=== PATIENT | male | born 1945 | race Caucasian/White ===

== ENCOUNTER 2019-11-12 12:08 | Emergency (ER) | payer MEDICARE, OTHER, SELFPAY ==
[2019-11-12 12:24] VITALS: BP 125/64; PULSE 67; RESP 18; TEMP 37.1; O2SAT 96
--- NOTE | 2019-11-12 12:28 | ED.MALEGU ---
HPI - Male Genitourinary General Chief complaint: Urogenital-Male Stated complaint: blood in urine Time Seen by Provider: 11/12/19 12:28 Source: patient and RN notes reviewed History of Present Illness HPI Narrative: Patient is a 74-year-old male who presents to the urgent care with complaints of bloody urine. Patient states that he is urinated twice this morning and both times has been bright red blood. Patient states that he has past issues with prostrate but has not had any chronic UTIs. Patient currently denies any dysuria, abdominal pain, fever, nausea, vomiting. Patient states he does have a history of prostate cancer 5 years ago and which was never treated at that time. Patient states he has not since then had any complications and has followed up with a urologist. Patient denies any other acute complaints. No acute distress noted. Patient aware of the plan of care. Some parts of this dictation were generated by voice recognition software and may contain typographical and/or grammatical inaccuracies. Related Data Home Medications Medication Instructions Recorded Confirmed hydrochlorothiazide 12.5 mg PO DAILY 11/12/19 11/12/19 Allergies Allergy/AdvReac Type Severity Reaction Status Date / Time Sulfa (Sulfonamide Allergy Hives Verified 11/12/19 12:39 Antibiotics) Review of Systems Review of Systems: Narrative: CONSTITUTIONAL: Denies fever, chills, or sweats. EYES: Denies visual changes, redness, or discharge. ENT: Denies rhinorrhea, congestion, sore throat, or otalgia. CARDIOVASCULAR: Denies chest pain, palpitations, or edema. RESPIRATORY: Denies cough or dyspnea. GASTROINTESTINAL: Denies abdominal pain, nausea, vomiting, or diarrhea. GENITOURINARY: Reports of hematuria SKIN: Denies rash or itching. MUSCULOSKELETAL: Denies back pain, joint pain, or myalgia. NEUROLOGIC: Denies headache, numbness, or weakness. All other systems reviewed are negative, except as documented in HPI. PMFSH Comments At the time of my signature, I reviewed and agree with the nursing past medical, surgical, social, and family history. There is no relevant family history pertinent to the patient complaint. Exam Narrative: Exam Narrative: GENERAL: This is a well-nourished, well-developed patient, in no apparent distress. HEAD: normocephalic, atraumatic. EYES: PERRL. Sclera clear/white. Vision is grossly intact. EARS: External ears normal NOSE: External nose normal with no obvious nasal discharge, nares without redness, no rhinorrhea. THROAT: Mucous membranes moist NECK: Neck supple CARDIOVASCULAR: Regular rate and rhythm without murmurs, gallops, or rubs. RESPIRATORY: Clear to auscultation. Breath sounds equal bilaterally. No wheezes, rales, or rhonchi. GASTROINTESTINAL: Abdomen soft, non-tender, nondistended. SKIN: warm, intact with no suspicious lesions or rash, good texture and turgor. NEURO: awake, alert, and oriented to person, place and time. There were no obvious focal neurologic abnormalities. EXTREMITIES: No clubbing, cyanosis, or edema. BACK: Negative bilateral CVA tenderness Course Vital Signs Vital signs: Vital Signs Temperature 98.7 F 11/12/19 12:24 Pulse Rate 67 11/12/19 12:24 Respiratory Rate 18 11/12/19 12:24 Blood Pressure 125/64 11/12/19 12:24 Pulse Oximetry 96 11/12/19 12:24 Temperature 98.7 F 11/12/19 12:24 Pulse Rate 67 11/12/19 12:24 Respiratory Rate 18 11/12/19 12:24 Blood Pressure 125/64 11/12/19 12:24 Pulse Oximetry 96 11/12/19 12:24 Reviewed Transfer Transfered to: [facility] Transportation: Other (Private car) Transfer rationale: Further evaluation and treatment for gross hematuria Accepting physician: Dr. Becker MDM - Male Genitourinary [facility] Narrative Medical decision making narrative: Reviewed lab results with the patient. He is aware that urine analysis does show gross hematuria. After speaking with the patient's PCP, Dr. Mendes, they adv
== END 2019-11-12 13:12 | disposition short-term general hospital (02) ==
PROVIDERS: Emergency Provider Nurse Practitioner Family; PCP Internal Medicine
DX: R31.0 Gross hematuria (principal); Z85.46 Personal history of malignant neoplasm of prostate; H40.9 Unspecified glaucoma
CPT/HCPCS: 81003; 99212; G0463

== ENCOUNTER 2021-01-26 13:57 | Emergency (ER) | payer MEDICARE, OTHER, SELFPAY ==
[2021-01-26 14:03] VITALS: BP 128/64; PULSE 60; RESP 20; TEMP 36.6; O2SAT 98
--- NOTE | 2021-01-26 14:03 | ED.URI ---
HPI - URI/Sore Throat General Chief Complaint: Upper Respiratory Infection Stated Complaint: runny nose cough watery eyes Time Seen by Provider: 01/26/21 14:06 Source: patient, family, RN notes reviewed and old records reviewed Mode of arrival: ambulatory Limitations: no limitations History of Present Illness HPI Narrative: 75-year-old male presents to the [facility] with runny nose, cough, watery eyes since yesterday. patient states that his and [id number] were in earlier states they were diagnosed with bronchitis. Denies fevers, chest pain, abdominal pain. MD elicited complaint: cough, rhinorrhea and nasal congestion Related Data Home Medications Medication Instructions Recorded Confirmed hydrochlorothiazide 12.5 mg PO DAILY 11/12/19 01/26/21 finasteride 5 mg PO DAILY 01/26/21 01/26/21 latanoprost See Rx Instructions .ROUTE .COMPLEX 01/26/21 01/26/21 losartan 100 mg PO DAILY 01/26/21 01/26/21 pravastatin 40 mg PO DAILY 01/26/21 01/26/21 tamsulosin 0.4 mg PO DAILY 01/26/21 01/26/21 timolol maleate See Rx Instructions .ROUTE .COMPLEX 01/26/21 01/26/21 Allergies Allergy/AdvReac Type Severity Reaction Status Date / Time Sulfa (Sulfonamide Allergy Hives Verified 01/26/21 14:05 Antibiotics) Review of Systems Review of Systems: All systems reviewed & are unremarkable except as noted in HPI and below Constitutional: Constitutional: Reports no additional constitutional complaints, Denies chills, Denies fatigue, Denies fever(s) and Denies weakness Eyes: Eyes: Reports no additional eye complaints and Denies change in vision ENT: Reports as per HPI and Reports nasal congestion Cardiovascular: Cardiovascular: Reports no additional cardiovascular complaints and Denies chest pain Respiratory: Respiratory: Reports as per HPI, Denies chest congestion, Reports cough, Denies dyspnea and Denies wheezing Gastrointestinal: Gastrointestinal: Reports no additional gastrointestinal complaints Musculoskeletal: Musculoskeletal: Reports no additional musculoskeletal complaints Integumentary/Breasts: Skin/Breast: Reports system reviewed and no additional complaints, except as docu Neurologic: Reports system reviewed and no additional complaints, except as documented Psychiatric: Psychiatric: Reports no additional psychiatric complaints Allergic/Immunologic: Allergic/Immunologic: Reports no additional allergic/immunologic complaints PMFSH Past Medical History Medical History (Updated 01/27/21 @ 12:13 by Valentine Quevedo) Enlarged prostate High cholesterol Hypertension Surgical History Surgical History (Updated 01/27/21 @ 12:13 by Valentine Quevedo) No significant past surgical history Social History Social History (Updated 01/27/21 @ 12:14 by Valentine Quevedo) Living arrangements: with family Gender identity (if verbalized by the patient): Male Comments At the time of my signature, I reviewed and agree with the nursing past medical, surgical, social, and family history. There is no relevant family history pertinent to the patient complaint. Exam Const: General: healthy appearing, no acute distress and alert Nutritional Appearance: well nourished Orientation/consciousness: patient oriented x3 Limitations: no limitations HENMT: Head: normal to inspection Ears: external ears normal, TM's normal bilaterally and EAC's normal General nose exam: Normal external nose present, Abnormal mucous membranes and turbinates present boggy; not erythematous and Nasal discharge present clear Face and sinus: normal facial exam Throat: posterior oropharynx normal Eyes: Conjunctivae: conjunctivae normal Pupils: Equal, round and reactive pupils present Neck: Neck: normal visual inspection, no lymphadenopathy and no meningeal signs Chest: Chest palpation & inspection: normal inspection of the chest Resp: Effort & Inspection: normal respiratory effort and no use of accessory muscles Auscultation: clear to auscultation b
[2021-01-26 14:11] VITALS: BP 128/64; PULSE 60; RESP 20; TEMP 36.6; O2SAT 98
== END 2021-01-26 14:25 | disposition home or self-care (01) ==
PROVIDERS: Emergency Provider Nurse Practitioner; PCP Internal Medicine
DX: R09.82 Postnasal drip (principal); E78.00 Pure hypercholesterolemia, unspecified; I10 Essential (primary) hypertension; N40.0 Benign prostatic hyperplasia without lower urinary tract symptoms
CPT/HCPCS: 99213; G0463